=== PATIENT | male | born 1960 | race Caucasian/White ===

== ENCOUNTER 2016-06-09 16:15 | Outpatient (RCR) | payer OTHER ==
[2005-06-10 11:00] VITALS: TEMP 96.2
[2016-06-17] MEDS ORDERED: ZOFRAN 4MG T4 MG/TAB PO (11:49)
[2016-06-17] MEDS ORDERED: ZANTAC 150MG T150 MG PO (11:49)
[2016-06-17] MEDS ORDERED: FLOMAX 0.40.4 MG/CAP PO (16:53)
== END 2016-07-25 | disposition still patient (30) ==
LOC: MKS.ESL.PT
DX: Z47.89 Encounter for other orthopedic aftercare (principal); M25.872 Other specified joint disorders, left ankle and foot

== ENCOUNTER 2016-06-17 11:43 | Inpatient (IN) | payer OTHER ==
[~2016-06-17] VITALS: Ht 177.8 cm; Wt 87.3 kg
[2016-06-17] MEDS ORDERED: ZANTAC 150MG T150 MG PO (11:49)
[2016-06-17] MEDS ORDERED: ZOFRAN 4MG T4 MG/TAB PO (11:49)
[2016-06-17 12:48] LABS: BASO % 0.4 % (0.0-2.0); EOS % 0.2 % (0-4.0); GRAN # 8.2 (1.4-6.5); GRAN % 75.4 % (42.2-75.2); HEMATOCRIT 41.8 % (42.0-52.0); HEMOGLOBIN 14.2 g/dl (13.5-18.0); LYMPH # 1.8 (1.2-3.4); LYMPH % 16.2 % (20.0-51.0); MEAN CELL VOLUME 88 fl (80.0-100.0); MEAN CORPUSCULAR HEMOGLOBIN 30 pg (27.0-31.0); MEAN CORPUSCULAR HGB CONC 34 g/dl (33.0-37.0); MEAN PLATELET VOLUME 9.7 fl (7.4-10.4); MONO # 0.8 (0.1-0.6); MONO % 7.3 % (1.7-9.3); PLATELET COUNT 251 K/mm3 (130-400); RED BLOOD COUNT 4.73 M/mm3 (4.20-5.60); REDCELL DISTRIBUTION WIDTH-CV 12.4 % (11.5-14.5); WHITE BLOOD COUNT 10.9 K/mm3 (4.8-10.8)
[2016-06-17 13:21] LABS: ADJUSTED CALCIUM 9.3 mg/dL (8.4-10.2); ALANINE AMINOTRANSFERASE 36 U/L (21-72); ALBUMIN 4.3 gm/dL (3.5-5.0); ALKALINE PHOSPHATASE 52 U/L (50-136); ANION GAP 11 mmol/L (7-16); BILIRUBIN,TOTAL 1.3 mg/dL (0.0-1.0); BLOOD UREA NITROGEN 11 mg/dL (9-20); C-REACTIVE PROTEIN 1.8 mg/dL (0.0-0.9); CALCIUM 9.5 mg/dL (8.4-10.2); CARBON DIOXIDE 27 mmol/L (22-30); CHLORIDE 98 mmol/L (98-107); CREATININE, serum 0.87 mg/dL (0.66-1.25); GLUCOSE 113 mg/dL (74-106); LIPASE 116 U/L (23-300); POTASSIUM 3.8 mmol/L (3.4-5.0); SODIUM 136 mmol/L (137-145); TOTAL PROTEIN 7.5 gm/dL (6.4-8.2)
[2016-06-17 13:30] LABS: TROPONIN-I < 0.012 ng/mL (0.000-0.034)
[2016-06-17 14:56] LABS: PH 7 (5-8); SQUAMOUS EPITHELIAL None Seen /hpf; URINE APPEARANCE Clear; URINE BACTERIA None Seen /hpf; URINE BILIRUBIN Negative (NEGATIVE); URINE BLOOD 1+ (NEGATIVE); URINE COLOR Yellow; URINE GLUCOSE Negative (NEGATIVE); URINE KETONE 1+ (NEGATIVE); URINE RBC 0-2 /hpf; URINE UROBILINOGEN Negative (NEGATIVE); URINE WBC 0-2 /hpf
[2016-06-17] MEDS ORDERED: FLOMAX 0.40.4 MG/CAP PO (16:53)
[2016-06-17 17:02] VITALS: BP 129/87; PULSE 73; TEMP 98.3
[2016-06-17 20:01] VITALS: BP 139/80; PULSE 78; TEMP 98.3
[2016-06-18 00:10] VITALS: BP 149/83; PULSE 85; TEMP 97.9
[2016-06-18 04:34] VITALS: BP 131/82; PULSE 70; TEMP 98
[2016-06-18 07:57] LABS: BASO % 0.2 % (0.0-2.0); EOS # 0.1 (0.0-0.7); EOS % 0.7 % (0-4.0); GRAN # 5.6 (1.4-6.5); GRAN % 66.1 % (42.2-75.2); LYMPH % 23.6 % (20.0-51.0); MEAN CELL VOLUME 91 fl (80.0-100.0); MEAN CORPUSCULAR HGB CONC 33 g/dl (33.0-37.0); MEAN PLATELET VOLUME 10.4 fl (7.4-10.4); MONO # 0.8 (0.1-0.6); PLATELET COUNT 210 K/mm3 (130-400); RED BLOOD COUNT 3.99 M/mm3 (4.20-5.60); REDCELL DISTRIBUTION WIDTH-CV 12.6 % (11.5-14.5); WHITE BLOOD COUNT 8.4 K/mm3 (4.8-10.8)
[2016-06-18 07:58] LABS: HEMATOCRIT 36.3 % (42.0-52.0); HEMOGLOBIN 11.8 g/dl (13.5-18.0); MEAN CORPUSCULAR HEMOGLOBIN 30 pg (27.0-31.0)
[2016-06-18 08:08] VITALS: BP 128/71; PULSE 81; TEMP 97.7
[2016-06-18 08:08] LABS: ADJUSTED CALCIUM 9.2 mg/dL (8.4-10.2); ALBUMIN 3.3 gm/dL (3.5-5.0); BILIRUBIN,TOTAL 0.8 mg/dL (0.0-1.0); CALCIUM 8.6 mg/dL (8.4-10.2); CREATININE, serum 0.73 mg/dL (0.66-1.25); POTASSIUM 4.3 mmol/L (3.4-5.0)
[2016-06-18 12:23] VITALS: BP 142/77; PULSE 74; TEMP 98.1
[2016-06-18 14:24] VITALS: BP 142/77; PULSE 74; TEMP 98.1
== END 2016-06-18 15:26 | disposition short-term general hospital (02) | DRG 439 ==
LOC: COL.ER 11:43 → MEDICAL 15:50
PROVIDERS: Emergency Medicine; Internal Medicine
DX: K85.90 Acute pancreatitis without necrosis or infection, unspecified (principal); E87.1 Hypo-osmolality and hyponatremia; E86.0 Dehydration; R10.13 Epigastric pain; D73.5 Infarction of spleen; D64.9 Anemia, unspecified
CPT/HCPCS: 99223-AI; 99239; C9113; J1170; J2405; J7030; Q9967

== ENCOUNTER → 2017-01-02 | Outpatient (CLI) | payer OTHER ==
[~2017-01-02] MED LIST: FLOMAX 0.40.4 MG/CAP PO; ZANTAC 150MG T150 MG PO; ZOFRAN 4MG T4 MG/TAB PO
== END ==
LOC: COL.RAD 09:47
DX: I77.1 Stricture of artery (principal); K85.90 Acute pancreatitis without necrosis or infection, unspecified; N40.0 Benign prostatic hyperplasia without lower urinary tract symptoms; N42.89 Other specified disorders of prostate
CPT/HCPCS: Q9967

== ENCOUNTER → 2019-02-12 | Outpatient (CLI) | payer OTHER | LOC: COL.RAD 14:02 | DX: M71.22 Synovial cyst of popliteal space [Baker], left knee (principal) ==

== ENCOUNTER → 2019-10-17 | Outpatient (CLI) | payer OTHER | LOC: COL.RAD 08:36 | DX: M17.12 Unilateral primary osteoarthritis, left knee (principal); M23.92 Unspecified internal derangement of left knee; S83.512A Sprain of anterior cruciate ligament of left knee, initial encounter ==